=== PATIENT | male | born 1990 | race Caucasian/White ===

== ENCOUNTER 2019-04-21 09:32 | Emergency (ER) | payer OTHER ==
[~2019-04-21] VITALS: Ht 180.3 cm; Wt 65.8 kg
[2019-04-21 10:02] LABS: HEMATOCRIT 39.2 % (42.0-52.0); HEMOGLOBIN 13.7 gm/dL (14.0-18.0); MCH 34.8 pg (26.0-34.0); MCHC 34.8 g/dL (28.0-37.0); MCV 100.1 fL (80.0-100.0); MPV 8.6 fl. (7.2-11.1); RBC 3.92 mil/uL (4.50-6.00); RDW-CV 13.2 % (10.5-14.5); WBC 5.2 thou/uL (4.0-11.0)
[2019-04-21 10:16] VITALS: BP 109/71
[2019-04-21 10:16] LABS: CALCIUM 7.9 mg/dL (8.5-10.1); CREATININE 0.8 mg/dL (0.6-1.3); POTASSIUM 3.8 mmol/L (3.5-5.1)
[2019-04-21 10:21] LABS: TOTAL BILIRUBIN 0.7 mg/dL (<0.1-1.0); TOTAL PROTEIN 6.4 g/dL (6.4-8.2)
[2019-04-21 10:41] LABS: ALCOHOL 356 mg/dL (<10); SALICYLATE < 2.8 mg/dL (2.8-20.0)
[2019-04-21 10:42] LABS: ACETAMINOPHEN < 2 ug/mL (10-30)
== END 2019-04-21 11:10 | disposition left against medical advice (07) ==
LOC: M.ERS 09:32
PROVIDERS: Personal Emergency Response Attendant
DX: F10.129 Alcohol abuse with intoxication, unspecified (principal); R74.0 Nonspecific elevation of levels of transaminase and lactic acid dehydrogenase [LDH]; Y90.8 Blood alcohol level of 240 mg/100 ml or more